=== PATIENT | male | born 1950 | race Two or more races ===

== ENCOUNTER 2020-11-21 15:53 | Outpatient (CLI) | payer MEDICARE ==
[2020-11-21 17:00] LABS: Hemoglobin 13.5 g/dL (13.5-17.5); Mean Corpuscular HGB CONC 33.2 g/dL (32.0-36.0); Mean Corpuscular Hemoglobin 29.8 pg (27.0-33.0); Mean Corpuscular Volume 89.8 fl (81.2-95.1); Mean Platelet Volume 9.3 fl (7.4-10.4); Platelet Count 282 10x3/uL (150-450); RBC Distribution Width 14.3 % (11.5-14.5); Red Blood Cell (RBC) Count 4.53 10x6/uL (4.32-5.72); White Blood Cell (WBC) Count 4.1 10x3/uL (3.5-10.5)
[2020-11-21 17:18] LABS: PTT 26.1 sec (22.0-33.0)
[2020-11-21 18:40] LABS: Anion Gap 17 mmol/L (10-20); BUN (Urea Nitrogen) 14 mg/dL (8.4-25.7); Calc. Creatinine Clearance 0 mL/min (70-130); Calcium 9.5 mg/dL (7.8-10.44); Carbon Dioxide 21 mmol/L (23-31); Chloride 110 mmol/L (98-107); Glucose 94 mg/dL (80-115); Potassium 4.5 mmol/L (3.5-5.1); Sodium 143 mmol/L (136-145)
[2020-11-22 12:40] LABS: SARS-CoV-2 PCR by NAA Not Detected (NotDetected)
== END 2020-11-21 15:54 | disposition home or self-care (01) ==
LOC: LABBT 15:53
PROVIDERS: ATTEND Urology
DX: Z01.812 Encounter for preprocedural laboratory examination (principal); N20.2 Calculus of kidney with calculus of ureter; Z20.822 Contact with and (suspected) exposure to COVID-19
CPT/HCPCS: 80048; 85027; 85610; 85730; U0003; U0005

== ENCOUNTER 2020-11-24 10:39 | Day surgery (SDC) | payer MEDICARE ==
[2020-11-23 12:07] VITALS: BMI 23.3
[2020-11-24] MEDS ORDERED: Famotidine/PF 20 mg/2ml Vial ONE (10:58)
[2020-11-24] MEDS ORDERED: Fentanyl 100 MCG/2 ML VIAL ONE ×2 (10:58→12:22)
[2020-11-24] MEDS ORDERED: SUGAMMADEX SODIUM 200 MG/2 ML VIAL ONE (12:23)
[2020-11-24] MEDS ORDERED: Iothalamate Meglumine 60% 50 ML VIAL FS ONE (12:24)
[2020-11-24] MEDS ORDERED: Levofloxacin 500 mg/D5W 100 ml Premix Bag ONE (12:27)
[2020-11-24] MEDS ORDERED: Ondansetron PF 4 MG/2 ML Vial ONE (12:36)
[2020-11-24] MEDS ORDERED: PROPOFOL 200 MG/20 ML VIAL ONE (12:36)
[2020-11-24] MEDS ORDERED: Dexamethasone 20 MG/5 ML VIAL ONE (12:36)
[2020-11-24] MEDS ORDERED: Rocuronium Bromide 10 MG/ML (10ML VIAL) ONE (12:36)
[2020-11-24] MEDS ORDERED: Glycopyrrolate 0.2 MG/ML 5 ML SYRINGE ONE (12:36)
[2020-11-24] MEDS ORDERED: Lidocaine 1% PF 5 ML VIAL ONE (12:36)
[2020-11-24] MEDS ORDERED: Ketorolac Tromethamine 30 MG/ML VIAL ONE (12:36)
[2020-11-24] MEDS ORDERED: HYDROcodone/Acetaminophen 5/325 mg Tablet ONE (16:46)
== END 2020-11-24 17:30 | disposition home or self-care (01) ==
LOC: SDC 10:39
PROVIDERS: ATTEND Urology
PROC: 0TC48ZZ Extirpation of Matter from Left Kidney Pelvis, Via Natural or Artificial Opening Endoscopic (ICD-10-PCS; principal; 2020-11-24)
PROC: 0T778DZ Dilation of Left Ureter with Intraluminal Device, Via Natural or Artificial Opening Endoscopic (ICD-10-PCS; 2020-11-24)
DX: N20.2 Calculus of kidney with calculus of ureter (principal); Z79.2 Long term (current) use of antibiotics
CPT/HCPCS: 52356; 74420; 82365; Q9961; 88300; J1100; J1885; J1956; J2405; J2704; J3010; S0028

== ENCOUNTER 2021-07-20 10:30 | Outpatient (CLI) | payer MEDICARE ==
[2021-07-20 22:42] LABS: SARS-CoV-2 PCR by NAA Not Detected (NotDetected)
== END 2021-07-20 10:31 | disposition home or self-care (01) ==
LOC: LABBT 10:30
PROVIDERS: ATTEND Ophthalmology
DX: Z20.822 Contact with and (suspected) exposure to COVID-19 (principal)
CPT/HCPCS: U0003; U0005

== ENCOUNTER 2021-07-24 11:25 | Day surgery (SDC) | payer MEDICARE ==
[2021-07-24] MEDS ORDERED: Phenylephrine 2.5% Ophth Soln 5 ML BOT ONE (11:46)
== END 2021-07-24 13:28 | disposition home or self-care (01) ==
LOC: SDC 11:25
PROVIDERS: ATTEND Ophthalmology
PROC: 085K3ZZ Destruction of Left Lens, Percutaneous Approach (ICD-10-PCS; principal; 2021-07-24)
DX: H26.492 Other secondary cataract, left eye (principal)